=== PATIENT | male | born 1950 | race Caucasian/White ===

== ENCOUNTER → 2021-01-26 | Outpatient (CLI) | payer MEDICARE ==
[~2021-01-26] MED LIST: ADULT ASPIRIN81 MG PO; AUGMENTIN 875-1 EACH PO; GABAPENTIN800 MG PO; GLUCOPHAGE1000 MG PO; LEVAQUIN500 MG PO; LOPRESSOR100 MG PO; MS CONTIN15 MG PO; NOVOLOG MI100 UNIT/2 SQ; PLAVIX 75 MG TA75 MG PO; PRINIVIL5 MG PO; PROSCAR5 MG PO; PROTONIX40 MG PO; VITAMIN D35000 UNI1 PO; ZOCOR80 MG PO
== END ==
LOC: HEART 5 01-19 09:15
DX: I20.9 Angina pectoris, unspecified (principal); R07.9 Chest pain, unspecified; R06.89 Other abnormalities of breathing; I07.1 Rheumatic tricuspid insufficiency
CPT/HCPCS: 78452; 93306; A9502; J2785